=== PATIENT | male | born 1985 | race Caucasian/White ===

== ENCOUNTER 2020-05-07 00:51 | Emergency (ER) | payer OTHER ==
[~2020-05-07] VITALS: Ht 182.9 cm; Wt 79.4 kg
[2020-05-07] MEDS ORDERED: Bacitracin Oint UD TOPIC ONE ×2 (00:57→01:00)
[2020-05-07] MEDS ORDERED: Tetanus/Diptheria/Pertussis IM ONE ×2 (00:57→01:00)
--- NOTE | 2020-05-07 00:59 | Emergency Room Report ---
History of Present Illness General Chief Complaint: Medical Clearance Source: Patient Present Illness HPI Disclaimer: Please note that this report is being documented using DRAGON technology. This can lead to erroneous entry secondary to incorrect interpretation by the dictating instrument. HPI: 34-year-old male brought in police custody for medical clearance prior to booking. The patient was reportedly tackled to the ground during the course of his arrest causing abrasions to his left knee and his left side. No active bleeding noted. Last tetanus shot was over 5 years ago. He states there was debris and dirt on the ground where he was tackled. Denied head injury or loss of consciousness. Does not take blood thinners. Denies recent illness. Denies chest pain, palpitation, shortness of breath, cough, fever, chills, nausea, vomiting or other symptoms at this time. PMH: Depression PSH: Tonsillectomy Allergies: Denied Social Hx: Denies drug or alcohol abuse Allergies: Coded Allergies: No Known Allergies (Unverified , 05/07/20) COVID-19 Screening Contact w/high risk pt: No Experienced COVID-19 symptoms?: No COVID-19 Testing performed [employer]: No Nursing Documentation-PMH Past Medical History: No Stated History Review of Systems All Other Systems: negative except mentioned in HPI Physical Exam Vital Signs Date Time Temp Pulse Resp B/P (MAP) Pulse Ox O2 Delivery O2 Flow Rate FiO2 05/07/20 00:49 98.6 116 16 122/86 (98) 98 Room Air General: Awake and alert, restrained to gurney, somewhat agitated HEENT: NC/AT. EOMI. Chest Wall: Mild tenderness palpation over the third and fourth ribs in the midaxillary line on the left side without palpable deformity or crepitus. Cardiovascular: Tachycardic. S1 and S2 normal. No murmur appreciated Resp: Normal work of breathing. Skin: Approximately 3 x 3 cm abrasion over the left knee. No laceration or bleeding. No foreign body or significant dirt in the wound. There is a large superficial abrasion over the mid axillary line on the left ribs. There is a 1 cm superficial laceration with no active bleeding and no foreign body or debris noted located over the fourth rib. No penetrating wound. 2 cm laceration over the ulnar aspect of the midforearm right side. No debris. No edema. MSK: Normal tone and bulk. Moving all extremities. No obvious deformity. Neuro: Awake and alert. Mentating appropriately. Procedures Laceration/Wound Repair Laceration/Wound Repair : Consent: Verbal Wound Location: chest - 1 cm laceration over the left ribs, upper extremity - 2 cm laceration over the right forearm Wound's Depth, Shape: superficial, linear Wound Length (cm): 3 Betadine Prep?: Yes Anesthesia: 1% Lidocaine Volume Anesthetic (ccs): 5 Wound Debrided: None Wound Repaired With: sutures Suture Size/Type: 4:0, other - Vicryl Number of Sutures: 6 Layer Closure?: No Sterile Dressing Applied?: Yes Patient Tolerated: Well Complications: None Medical Decision Making Diagnostic Impression: Primary Impression: Abrasions of multiple sites Additional Impressions: Medical clearance for incarceration Laceration ER Course 34-year-old male brought in police custody for medical clearance and evaluation of abrasion sustained during the rest. Patient's close removed and full physical exam performed. Abrasions and laceration were irrigated and cleaned thoroughly. Laceration on the right forearm required 4 simple interrupted sutures and a laceration over the left ribs requiring 2 simple interrupted sutures. See separate procedure section of this note for full details. Patient declined x-ray of the ribs to evaluate for fracture as there was some pain noted. Bacitracin applied. Tetanus updated. Discharged to police custody. Medically cleared. Last Vital Signs Date Time Temp Pulse Resp B/P (MAP) Pulse Ox O2 Delivery O2 Flow Rate FiO2 05/07/20 00:49 98.6 116 16 122/86 (98) 98 Room Air Disposition: LAW ENFORCEMENT IN CUST Condition: Stable Scripts Bacitracin (Bacitracin) 28.4 Gm Oint...g. 1 APPLIC TOPIC THREE TIMES A DAY for 5 Days, #1 TUBE Prov: Juan Adams MD 05/07/20 Juan Adams MD May 07, 2020 00:59
[2020-05-07] MEDS ORDERED: BACITRACIN15 GM TOPIC (01:01)
--- NOTE | 2020-05-07 01:08 | NUR ---
ED Nurse Note: Patient brought in by ambulance [id number] accompanied by [employer] for medical clearance. Patient aao x 4 and ambulatory. Patient presents with multiple abrasions, approximately 1 inch laceration on left posterior back and approximately 2cm laceration on right elbow, ERMD aware. Patient stable during assessment.
[2020-05-07 01:10] VITALS: BP 125/85
[2020-05-07 02:00] VITALS: BP 127/89
--- NOTE | 2020-05-07 02:00 | NUR ---
ER DISCHARGE NOTE: Patient is cleared to be booked per ERMD, pt is aox4, on room air, with stable vital signs. [employer] was given dc and prescription instructions, pt and [employer] was able to verbalize understanding. pt is able to ambulate with steady gait. pt took all belongings. pt stable upon discharge accompanied by [employer].
== END 2020-05-07 02:00 ==
LOC: EDBD 00:51 → EMR 01:24
DX: S21.112A Laceration without foreign body of left front wall of thorax without penetration into thoracic cavity, initial encounter (principal); S51.811A Laceration without foreign body of right forearm, initial encounter; S80.212A Abrasion, left knee, initial encounter; Z23 Encounter for immunization; F32.9 Major depressive disorder, single episode, unspecified; Y35.93XA Legal intervention, means unspecified, suspect injured, initial encounter; Y92.9 Unspecified place or not applicable
CPT/HCPCS: 90471; 90715; 99283